=== PATIENT | male | born 1950 | race Caucasian/White ===

== ENCOUNTER 2017-10-31 15:46 | Emergency (ER) | payer MEDICARE, BC ==
[~2017-10-31] VITALS: Ht 180.3 cm; Wt 85.7 kg
[~2017-10-31 15:46] MED LIST: ASPI81TA31 PO
[2017-10-31] MEDS ORDERED: CARV6.25 PO (15:55)
[2017-10-31] MEDS ORDERED: HYDR25TA4 PO (15:55)
--- NOTE | 2017-10-31 16:37 | NUR ---
RECEIVED A 67 Y/O MALE PT CAME WALKING , C/O LT LOWER ABDOMINAL SWELLING, NO PAIN RELATED.
--- NOTE | 2017-10-31 16:40 | NUR ---
IV LINE G20 ON LT AC INSERTED, BLOOD SAMPLES TAKEN AND SENT TO LAB.
[2017-10-31 16:42] LABS: BASOPHILS % (AUTO) 0.5 % (0.0-2.0); EOSINOPHILS # (AUTO) 0.2 K/uL (0.0-0.7); EOSINOPHILS % (AUTO) 1.8 % (0.0-7.0); HEMATOCRIT 40.2 % (36.7-47.1); HEMOGLOBIN 13.9 g/dL (12.5-16.3); LYMPHOCYTES # (AUTO) 1.5 K/uL (20.0-40.0); LYMPHOCYTES % (AUTO) 18.3 % (20.5-51.5); MEAN CORPUSCULAR HEMOGLOBIN 31.4 uug (23.8-33.4); MEAN CORPUSCULAR HGB CONC 35 g/dL (32.5-36.3); MEAN CORPUSCULAR VOLUME 90.4 fL (73.0-96.2); MONOCYTES # (AUTO) 0.6 K/uL (2.0-10.0); MONOCYTES % (AUTO) 7.3 % (0.0-11.0); NEUTROPHILS # (AUTO) 5.9 K/uL (1.8-8.9); NEUTROPHILS % (AUTO) 72.1 % (38.5-71.5); PLATELET COUNT (AUTO) 218 K/uL (152-348); RED BLOOD CELL COUNT(AUTO) 4.44 MIL/uL (4.06-5.63); WHITE BLOOD COUNT (AUTO) 8.2 K/uL (3.6-10.2)
[2017-10-31 16:51] LABS: CREATININE 0.9 mg/dL (0.6-1.3)
[2017-10-31] MEDS ORDERED: IV NORMAL SALINE 100 ML ONE (17:00)
[2017-10-31] MEDS ORDERED: IV NORMAL SALINE 1000 ML BAG IV ONE (17:00)
[2017-10-31] MEDS ORDERED: SWABABLE VALVE TRANSFER SET EA MC ONE (17:00)
[2017-10-31] MEDS ORDERED: POTASSIUM CHLORIDE 20 MEQ TAB.PRT.SR PO ONE (17:00)
[2017-10-31] MEDS ORDERED: IOHEXOL 300MG/ML 100 ML INFUS..BTL ONE (17:00)
[2017-10-31] MEDS ORDERED: NORMAL SALINE FLUSH 10 ML DISP.SYRIN ONE (17:00)
--- NOTE | 2017-10-31 17:00 | NUR ---
CONSENT FORM SIGNED FOR CT WITH CONTRAST AND PATIENT SENT TO RADILOGY UNIT
--- NOTE | 2017-10-31 17:15 | NUR ---
PT BACK FROM RADIOLOGY UNIT , HOOKED UP TO 1000ML N/S IV
[2017-10-31] MEDS ORDERED: POTASSIUM CHLORIDE 20 MEQ TAB.PRT.SR ONE (17:51)
[2017-10-31] MEDS ORDERED: CEPHALEXIN MONOHYDRATE 500 MG CAPSULE ONE (18:11)
[2017-10-31] MEDS ORDERED: SULFAMETH/TRIMETH 800/160 MG TABLET ONE (18:11)
[2017-10-31] MEDS ORDERED: SULFAMETH/TRIMETH 800/160 MG TABLET PO ONE (18:15)
[2017-10-31] MEDS ORDERED: CEPHALEXIN MONOHYDRATE 500 MG CAPSULE PO ONE (18:15)
--- NOTE | 2017-10-31 18:17 | NUR ---
SEEN BY MD, ORDERED FOR DISCHARGE, PT RECEIVED FIRST DOSE OF ANTIBIOTIC, RX PRESCRIPTION AND DISCHARGE INSTRUCTIONS GIVEN.
== END 2017-10-31 18:22 | disposition home or self-care (01) ==
LOC: ER 15:47
DX: L02.211 Cutaneous abscess of abdominal wall (principal); E87.6 Hypokalemia; I10 Essential (primary) hypertension; Z88.8 Allergy status to other drugs, medicaments and biological substances; Z79.82 Long term (current) use of aspirin; Z79.899 Other long term (current) drug therapy
CPT/HCPCS: 36415; 74177; 76705; 80048; 85025; 99285; A4663; J3490 ×2; J7030; Q9967